=== PATIENT | male | born 1960 | race Caucasian/White ===

== ENCOUNTER → 2019-07-31 | Outpatient (REF) | LOC: M LAB LCGH 11:55 | PROVIDERS: ATTEND Surgery | DX: L72.0 Epidermal cyst (principal) ==

== ENCOUNTER → 2021-12-27 | Outpatient (CLI) | payer OTHER ==
[~2021-12-27] MED LIST: PROHANCE 279.3MG/ML 15ML VIAL ONE
== END ==
LOC: M PLAIMG 08:31
PROVIDERS: ATTEND Physician Assistant Medical
DX: H91.92 Unspecified hearing loss, left ear (principal)
CPT/HCPCS: 70553; A9576

== ENCOUNTER → 2022-08-19 | Outpatient (REF) | payer OTHER ==
[2022-08-19 16:07] LABS: APPEARANCE, URINE MANUAL CLEAR (CLEAR); COLOR, URINE MANUAL LT YELLOW (YELLOW)
[2022-08-19 16:08] LABS: BILIRUBIN, URINE MANUAL NEGATIVE (NEGATIVE); BLOOD URINE MANUAL TRACE (NEGATIVE); GLUCOSE, URINE (UA) MANUAL NEGATIVE (NEGATIVE); KETONE, URINE MANUAL NEGATIVE (NEGATIVE); LEUKOCYTE ESTERASE, URINE MAN NEGATIVE (NEGATIVE); NITRITE, URINE MANUAL NEGATIVE (NEGATIVE); PROTEIN, URINE MANUAL NEGATIVE (NEGATIVE); UROBILINOGEN, URINE MANUAL NORMAL (NORMAL)
[2022-08-19 16:51] LABS: BACTERIA, URINE NONE SEEN; RBC, URINE 0-1 /hpf (0-3); SQUAMOUS EPITHELIAL CELL URINE NONE SEEN /hpf (SMALL AMT); WBC, URINE NONE SEEN /hpf (0-3)
== END ==
LOC: M SMT 15:04
PROVIDERS: ATTEND Physician Assistant
DX: R31.21 Asymptomatic microscopic hematuria (principal)

== ENCOUNTER → 2022-09-06 | Outpatient (CLI) | payer OTHER ==
[~2022-09-06] MED LIST changes: +ISOVUE-370 76% 100ML VIAL As Ordered ONE; -PROHANCE 279.3MG/ML 15ML VIAL ONE
== END ==
LOC: M RAD 09:25
PROVIDERS: ATTEND Physician Assistant
DX: R31.21 Asymptomatic microscopic hematuria (principal); R91.8 Other nonspecific abnormal finding of lung field

== ENCOUNTER → 2024-08-29 | Outpatient (CLI) | payer MEDICARE | LOC: M CARPUL 08:31 | PROVIDERS: ATTEND Registered Nurse | DX: R07.9 Chest pain, unspecified (principal) ==

== ENCOUNTER → 2024-09-18 | Outpatient (CLI) | payer MEDICARE | LOC: M SLEEP HO 11:03 | PROVIDERS: ATTEND Registered Nurse | DX: G47.33 Obstructive sleep apnea (adult) (pediatric) (principal); R06.83 Snoring ==

== ENCOUNTER → 2024-11-05 | Outpatient (CLI) | payer MEDICARE | LOC: M SLEEP 20:00 | PROVIDERS: ATTEND Nurse Practitioner Adult Health | DX: G47.33 Obstructive sleep apnea (adult) (pediatric) (principal) ==

== ENCOUNTER → 2025-08-19 | Outpatient (CLI) | payer MEDICARE | LOC: M PLAIMG 12:25 | PROVIDERS: ATTEND Registered Nurse | DX: I77.810 Thoracic aortic ectasia (principal) ==